=== PATIENT | female | born 1955 | race Caucasian/White ===

== ENCOUNTER → 2018-02-22 | Outpatient (CLI) | payer OTHER ==
[~2018-02-22] MED LIST: ADVAIR 500-501 EACH INH; ALBUTEROL2.5 MG/31 INH; ASPIR 8181 MG PO; ATENOLOL 100MG100 MG PO; KLOR-CON 1010 MEQ PO; MAXZIDE-25 MG1 EACH PO; NORVASC10 MG PO; ROBAXIN 750 MG750 M1 PO; SPIRIVA INH; ZOCOR20 MG PO
== END ==
LOC: M.RAD 14:38
DX: J40 Bronchitis, not specified as acute or chronic (principal)

== ENCOUNTER → 2019-04-19 | Outpatient (CLI) | payer MEDICARE, OTHER | LOC: M.RAD 11:05 | DX: M19.011 Primary osteoarthritis, right shoulder (principal) ==

== ENCOUNTER → 2021-03-24 | Outpatient (CLI) | payer MEDICARE, OTHER | LOC: M.CT 10:00 | PROVIDERS: ATTEND Family Medicine | DX: K80.20 Calculus of gallbladder without cholecystitis without obstruction (principal); N20.0 Calculus of kidney; I70.0 Atherosclerosis of aorta; R30.0 Dysuria ==